=== PATIENT | male | born 1975 | race African-American/Black ===

== ENCOUNTER 2020-08-19 00:21 | Inpatient (IN) | payer OTHER ==
[~2020-08-19] VITALS: Ht 175.3 cm; Wt 85.6 kg
[2020-08-19 00:35] LABS: BASO # 0.1 x10^3/uL (0.0-0.2); BASO % 1 % (0-3); EOS # 0.1 x10^3/uL (0.0-0.7); EOS % 1 % (0-3); HEMATOCRIT 44.4 % (39.0-53.0); HEMOGLOBIN 15.3 g/dL (13.0-17.5); LYMPH # 4.1 x10^3/uL (1.0-4.8); LYMPH % 39 % (24-48); MEAN CORPUSCULAR HEMOGLOBIN 34 pg (25-35); MEAN CORPUSCULAR HGB CONC 35 g/dL (31-37); MEAN CORPUSCULAR VOLUME 97 fL (79-100); MONO # 0.8 x10^3/uL (0.0-1.1); MONO % 8 % (0-9); NEUT # 5.2 x10^3/uL (1.8-7.7); NEUT % 51 % (31-73); PLATELET COUNT 355 x10^3/uL (140-400); RED BLOOD COUNT 4.58 x10^6/uL (4.30-5.70); RED CELL DISTRIBUTION WIDTH 14.7 % (11.5-14.5); WHITE BLOOD COUNT 10.3 x10^3/uL (4.0-11.0)
[2020-08-19 00:45] LABS: CALCIUM 8.5 mg/dL (8.5-10.1); CREATININE 1.3 mg/dL (0.7-1.3); GFR 60.2; POTASSIUM 3.6 mmol/L (3.5-5.1)
[2020-08-19] MEDS ORDERED: HYDROmorphone 2 MG/ML VIAL IVP ONE ×2 (00:45→02:00)
[2020-08-19 00:47] LABS: PROTHROMBIN TIME PATIENT 12.5 SEC (11.7-14.0)
[2020-08-19 00:50] LABS: TOTAL BILIRUBIN 0.2 mg/dL (0.2-1.0); TOTAL PROTEIN 8.1 g/dL (6.4-8.2)
--- NOTE | 2020-08-19 00:55 | RAD ---
XR RT TIBIA+FIBULA , XR EXAM OF ANKLE_RIGHT 2 VIEWS, XR KNEE_RT 1-2 VIEWS, XR FOOT_RIGHT 2 VIEWS History: Reason: right medial ankle pain / Spl. Instructions: / History: Technique: 2 views right knee, 2 views right tib-fib, 2 views right ankle and 2 views right foot Comparison: None. Findings: Right knee: Normal alignment. No fracture. No significant knee joint effusion. Right tibia-fibula and ankle acute comminuted displaced distal fibular fracture. Acute comminuted dis placed medial malleolus fracture. Acute posterior malleolus fracture. Dislocation of the ankle with d isruption of the ankle mortise with rotation. Ankle soft tissue swelling. Right foot: Normal alignment of the foot. No fracture. Impression: 1. Acute right trimalleolar ankle fracture with dislocation. Electronically signed by: James Lyons DO (08/19/2020 12:52 AM) [facility]
[2020-08-19] MEDS ORDERED: IV NORMAL SALINE 1000ML BAG 1,000 ML IV ONE ×2 (01:00→03:00)
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
[2020-08-19] MEDS: HYDROmorphone 2 MG/ML VIAL IVP ONE ×2 (01:18→01:30)
--- NOTE | 2020-08-19 01:35 | EKG ---
[facility] [address] [place] [address] Test Date: 2020-08-19 Test Time: 01:03:30 Pat Name: ELIZABETH OLIVERA Department: Room: Gender: M [employer]: : 1975 Requested By: LOLITA HOGAN Order Number: [id number] Reading MD: Measurements Intervals [place] Rate: 73 P: 0 [place]: 144 QRS: 38 QRSD: 94 T: 3 QT: 378 QTc: 420 Interpretive Statements SINUS RHYTHM LOW LIMB LEAD VOLTAGE NO SPECIFIC ECG ABNORMALITIES RI6.02 No previous ECG available for comparison
[2020-08-19] MEDS ORDERED: ONDANSETRON PF 4 MG/2 ML VIAL. IV PRN (01:45)
--- NOTE | 2020-08-19 01:58 | RAD ---
XR CHEST 1V History: Reason: fall / Spl. Instructions: / History: . Pain Comparison: None. Findings: No consolidation or pleural effusion. Normal heart size. No pneumothorax. Impression: 1. No acute cardiopulmonary process. Electronically signed by: James Lyons DO (08/19/2020 1:56 AM) [facility]
--- NOTE | 2020-08-19 01:59 | RAD ---
XR PELVIS 1-2V History: Reason: fall / Spl. Instructions: / History:. Pain Technique: AP view the pelvis. Comparison: None. Findings: Normal alignment. No fracture. Impression: 1. No acute osseous abnormality. Electronically signed by: James Lyons DO (08/19/2020 1:57 AM) [facility]
[2020-08-19] MEDS ORDERED: IV NORMAL SALINE 1000ML BAG 1,000 ML IV SCH (02:00)
--- NOTE | 2020-08-19 02:00 | RAD ---
XR EXAM OF ANKLE_RIGHT 3VIEWS History: Reason: s/p reduction / Spl. Instructions: / History: Technique: 3 views right ankle Comparison: None. Findings: Interval reduction right ankle fracture dislocation. Persistent widening of ankle mortise. Improved a lignment of the comminuted distal fibular, medial malleolus and posterior malleolus fractures. Impression: 1. Interval reduction right ankle fracture dislocation, improved alignment. Electronically signed by: James Lyons DO (08/19/2020 1:58 AM) [facility]
[2020-08-19] MEDS ORDERED: IV RINGERS,LACTATED 1000ML 1,000 ML IV ONE (03:30)
--- NOTE | 2020-08-19 03:33 | RAD ---
CT HEAD AND C-SPINE WO History: Reason: intox fall, right ankle pain / Spl. Instructions: / History: Comparison: None. Technique: Noncontrast CT imaging was performed of the head and cervical spine. Coronal and sagittal reconstructions were performed. Exposure: One or more of the following individualized dose reduction techniques were utilized for thi s examination: 1. Automated exposure control 2. Adjustment of the mA and/or kV according to patient size 3. Use of iterative reconstruction technique. Findings: Head CT: No intracranial hemorrhage. No mass effect. No hydrocephalus. Chronic left frontal infarct. Mild additional foci of decreased attenuation within the hemispheric white matter, most often due to chronic microvascular ischemia. Imaged orbits are unremarkable. Left inferior maxillary sinus mucous retention cyst or polyp. No acut e calvarial fracture. Cervical spine CT: Normal vertebral body height and alignment. No fracture. Mild degenerative disc changes most prominent C5-C6. No high-grade canal or neuroforaminal narrowing. Right apical bleb measures 2.1 x 2.0 cm. Impression: Head CT: 1. No acute intracranial abnormality. 2. Chronic left frontal infarct. Cervical spine CT: 1. No acute fracture or subluxation of the cervical spine. Electronically signed by: James Lyons DO (08/19/2020 3:30 AM) [facility]
[2020-08-19] MEDS: MORPHINE SULFATE 4 MG/ML VIAL. IV PRN ×3 (04:01→10:55)
[2020-08-19 07:00] VITALS: BP 108/62
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
[2020-08-19] MEDS ORDERED: SENNOSIDES 8.6 MG TABLET PO PRN (07:45)
[2020-08-19] MEDS: IV NORMAL SALINE 1000ML BAG 1,000 ML IV SCH ×2 (07:45→17:40)
[2020-08-19] MEDS ORDERED: ACETAMINOPHEN 325 MG TABLET. PO PRN (07:45)
[2020-08-19] MEDS ORDERED: DOCUSATE SODIUM 100 MG CAPSULE. PO PRN (07:45)
[2020-08-19] MEDS ORDERED: DEXTROSE 50% 25 GM / 50ML DISP.SYRIN. IV PRN ×2 (07:45→13:45)
[2020-08-19] MEDS ORDERED: ONDANSETRON PF 4 MG/2 ML VIAL. IVP PRN ×2 (07:45→13:45)
--- NOTE | 2020-08-19 09:33 | NUR ---
Discussed CIWA protocol with Dr Cruz. Dr Cruz says not needed at this time. Continue to medicate for right ankle pain. Ice chips given. No signs of alcohol withdrawal noted at this time.
[2020-08-19 11:00] VITALS: BP 114/67
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
[2020-08-19] MEDS ORDERED: PROCHLORPERAZINE 10 MG/2 ML VIAL. IVP PRN (11:30)
[2020-08-19] MEDS ORDERED: IV RINGERS,LACTATED 1000ML 1,000 ML IV SCH (11:30)
[2020-08-19] MEDS ORDERED: MORPHINE SULFATE 2 MG/ML VIAL. IVP PRN ×2 (11:30→13:45)
[2020-08-19] MEDS ORDERED: fentaNYL PF VIAL 100 MCG/2 ML VIAL IVP PRN ×2 (11:30→13:45)
[2020-08-19] MEDS ORDERED: HYDROmorphone 2 MG/ML VIAL IVP PRN (11:30)
--- NOTE | 2020-08-19 12:15 | NUR ---
Pt taken to OR per bed for ORIF of right ankle.
[2020-08-19] MEDS ORDERED: ONDANSETRON PF 4 MG/2 ML VIAL. ONE (12:19)
[2020-08-19] MEDS ORDERED: DEXAMETHASONE SOD PHOS 4 MG/ML VIAL ONE (12:19)
[2020-08-19] MEDS ORDERED: LIDOCAINE 2% PF 5 ML VIAL. ONE (12:19)
[2020-08-19] MEDS ORDERED: PROPOFOL 10 MG/ML (20ML) VIAL. IV ONE (12:19)
[2020-08-19] MEDS ORDERED: fentaNYL PF VIAL 100 MCG/2 ML VIAL ONE ×2 (12:20→12:28)
[2020-08-19] MEDS: fentaNYL PF VIAL 100 MCG/2 ML VIAL IVP PRN ×2 (12:33→15:04)
[2020-08-19] MEDS ORDERED: BUPIVACAINE-EPI 0.5%-1:200000 MPF 30 ML VIAL. ONE (13:00)
[2020-08-19] MEDS ORDERED: MIDAZOLAM HCL/PF 2 MG/2 ML VIAL. ONE (13:12)
[2020-08-19] MEDS ORDERED: KETOROLAC 30 MG/ML VIAL. ONE (13:12)
[2020-08-19] MEDS ORDERED: MORPHINE SULFATE 4 MG/ML VIAL. IVP PRN (13:45)
[2020-08-19] MEDS ORDERED: oxyCODONE IR 5 MG TABLET PO PRN (13:45)
[2020-08-19] MEDS ORDERED: HYDROcodone/APAP 7.5/325MG 1 TAB TABLET PO PRN ×2 (13:45)
[2020-08-19] MEDS ORDERED: POLYETHYLENE GLYCOL 3350 17 GM PACKET. PO PRN (13:45)
--- NOTE | 2020-08-19 14:03 | PDOC4 ---
OPERATIVE NOTE: Surgery Date: 08/19/20 Preoperative diagnosis: Right ankle bimalleolar ankle fracture dislocation. Postoperative diagnosis: Same. Operative procedure: Right ankle bimalleolar fracture closed reduction and splint application. Surgeon: Kimberly Gillespie DO/EVELIA Assistants: None Anesthesia: General Antibiotics: Ancef Orthopedic implants: None Operative indications: Patient is a 45 year-old male admitted through the ED this morning with a right ankle fracture dislocation. His radiographs revealed a subluxed bimalleolar fracture with unacceptable alignment. We discussed the risks, benefits, and alternatives to surgery for closed and possible open reduction with possible internal fixation. He demonstrated understanding and wished to proceed with surgery. Operative technique: The patient was met in the preoperative holding area and again the risk, benefits, and alternatives to surgery were reviewed with the patient. He again demonstrated understanding and wished to proceed with surgery. The operative extremity was then initialed after verifying correct surgical site with patient. Patient was then taken back to the operative suite. He was placed on the operative table in supine position. He was administered a general anesthetic by the department of anesthesiology and given 2 g of Ancef preoperatively. A timeout protocol was performed to verify correct surgical site and procedure. All teams were in agreement. Due to the significant amount of soft-tissue swelling, and open surgery was not attempted as there would be concern for inability to close surgical incisions at the end of the case. Therefore, a closed reduction was performed to achieve more stable alignment. The patient was then placed into a plaster 3 sided short leg splint. Fluoroscopic images were taken to verify adequate reduction. We will plan to follow the patient via the out-patient orthopedic clinic and schedule surgery for definitive fixation once his soft tissue swelling improves. I will also order a post-op CT and post-reduction radiographs for pre-surgery planning purposes. The patient was then awakened from general anesthesia. He was then transferred to the postoperative gurcherry fork in stable condition. Estimated blood loss: 0 mL. Complications: None. Specimens sent to pathology: None. Disposition: PACU and post surgical floor. Condition: Stable. KIMBERLY GILLESPIE DO Aug 19, 2020 14:03
--- NOTE | 2020-08-19 14:34 | RAD ---
Three-view right ankle 2:04 PM HISTORY: Pain status post reduction AP lateral oblique views COMPARISON: 1:44 AM AP lateral oblique views There is obscuration of bony detail due to overlying cast. The tibiotalar relationship is normal. The re is an oblique fracture of the lateral malleolus above the level plafond and with mild lateral disp lacement. There is a fracture through the medial malleolus which is not well seen and is likely reduc ed. There is mild widening of the medial mortise. IMPRESSION: 1. Bimalleolar fracture. There is mild displacement of the lateral malleolus which is significantly i mproved. 2. Mild widening of the medial mortise is significantly improved. Electronically signed by: Kieran Wahl III, MD (08/19/2020 2:32 PM) [facility]
[2020-08-19 15:19] VITALS: BP 119/76
--- NOTE | 2020-08-19 15:20 | NUR ---
Pt returned from OR . Closed reduction performed and pt will have to go back to ER in about a week when swelling goes down.
[2020-08-19 15:49] VITALS: BP 129/84
--- NOTE | 2020-08-19 17:10 | RAD ---
EXAMINATION: CT LOWER RIGHT EXTREMITY WITHOUT CONTRAST, 08/19/2020 3:05 PM CLINICAL INDICATION: Right ankle fracture COMPARISON: Right ankle radiograph 08/19/2020 TECHNIQUE: Helical CT imaging performed of the right ankle without the use of intravenous contrast. S agittal and coronal reformats were obtained. One or more of the following individualized dose reduction techniques were utilized for this examinat ion: 1. Automated exposure control 2. Adjustment of the mA and/or kV according to patient size 3. Use of iterative reconstruction technique. FINDINGS: There is a comminuted oblique fracture of the distal fibula extending proximally from the level of th e distal tibiofibular syndesmosis. This results in approximately one cortex width posterior and later al displacement of the distal fragment. A small fracture fragment also extends into the distal tibiof ibular syndesmosis. There is a mildly displaced medial malleolar fracture. 5 mm medial clear space widening. A tiny posterior malleolus fracture results in a 1.6 x 0.3 x 0.7 cm fracture fragment, mildly displac ed posteriorly by 3 mm. The talar dome is intact. No other fracture or dislocation. No degenerative joint disease. The peroneal tendons are slightly medialized at the lateral malleolus but there is no definite tendon entrapment. Medial flexor, anterior extensor, and Achilles tendons are grossly intact and normal in position. There is subcutaneous edema about the ankle. IMPRESSION: Mildly displaced trimalleolar fractures, as described. Electronically signed by: Feli Ibarra MD (08/19/2020 5:08 PM) [id number]
[2020-08-19 19:00] VITALS: BP 133/74
[2020-08-19 23:00] VITALS: BP 150/83
[2020-08-20 03:00] VITALS: BP 165/98
[2020-08-20] MEDS: IV NORMAL SALINE 1000ML BAG 1,000 ML IV SCH (03:56)
[2020-08-20 04:38] LABS: BASO % 0 % (0-3); EOS % 0 % (0-3); HEMATOCRIT 40.6 % (39.0-53.0); HEMOGLOBIN 13.6 g/dL (13.0-17.5); LYMPH # 0.9 x10^3/uL (1.0-4.8); LYMPH % 6 % (24-48); MEAN CORPUSCULAR HEMOGLOBIN 33 pg (25-35); MEAN CORPUSCULAR HGB CONC 34 g/dL (31-37); MEAN CORPUSCULAR VOLUME 97 fL (79-100); MONO # 1.1 x10^3/uL (0.0-1.1); MONO % 7 % (0-9); NEUT # 13.2 x10^3/uL (1.8-7.7); NEUT % 87 % (31-73); PLATELET COUNT 299 x10^3/uL (140-400); RED BLOOD COUNT 4.19 x10^6/uL (4.30-5.70); WHITE BLOOD COUNT 15.2 x10^3/uL (4.0-11.0)
[2020-08-20 05:01] LABS: CALCIUM 8.2 mg/dL (8.5-10.1); GFR 98.7; MAGNESIUM 1.8 mg/dL (1.8-2.4); PHOSPHORUS 2.3 mg/dL (2.6-4.7); POTASSIUM 4.1 mmol/L (3.5-5.1)
[2020-08-20 06:00] LABS: % BANDS 4 % (0-9); % LYMPHS 6 % (24-48); % MONOS 2 % (0-10); % SEGS 88 % (35-66); PLT ESTIMATE ADEQUATE (ADEQUATE)
[2020-08-20] MEDS ORDERED: MAGNESIUM HYDROXIDE 2,400 MG/30 ML ORAL.SUSP. PO PRN (06:00)
[2020-08-20 07:00] VITALS: BP 144/87
[2020-08-20] MEDS ORDERED: SENNOSIDES/DOCUSATE 8.6/50MG TABLET. PO SCH (09:00)
--- NOTE | 2020-08-20 09:14 | PDOC ---
GENERAL General: Postop day #1 status post right ankle fracture/dislocation closed reduction and splint application. Patient's pain is well controlled. Currently up with physical therapy using axillary crutches and nonweightbearing on right lower extremity. Problems: (1) Dislocation of right ankle joint VITAL SIGNS Vital Signs/I&O: Vital Signs Date Time Temp Pulse Resp B/P (MAP) Pulse Ox O2 Delivery O2 Flow Rate FiO2 08/20/20 07:00 98.4 82 17 144/87 (106) 98 Nasal Cannula 2.0 98.4 I & O 08/19/20 08/19/20 08/20/20 15:00 23:00 07:00 Intake Total 1450 ml 700 ml 200 ml Output Total 500 ml 850 ml 600 ml Balance 950 ml -150 ml -400 ml ALLERGIES Allergies: Allergies Coded Allergies Type Severity Reaction Last Updated Verified No Known Drug Allergies 08/19/20 No MEDS Medications: Current Medications Medications (Trade) Dose Ordered Sig/Ganesh Route PRN Reason Start Time Stop Time Status Last Admin Dose Admin Fentanyl Citrate (Fentanyl 2ml Vial) 50 mcg PRN Q5MIN PRN IVP MODERATE PAIN 4-6 08/19/20 11:30 08/20/20 11:29 08/19/20 15:04 Ringer's Solution 1,000 ml @ 30 mls/hr Q24H IV 08/19/20 11:30 08/19/20 23:29 DC 08/19/20 11:30 Cefazolin Sodium/ Dextrose 50 ml @ 100 mls/hr 1X ONCE IV 08/19/20 12:45 08/19/20 13:14 DC 08/19/20 13:05 LAB Lab: Laboratory Tests Test 08/20/20 04:15 White Blood Count 15.2 x10^3/uL (4.0-11.0) H Red Blood Count 4.19 x10^6/uL (4.30-5.70) L Hemoglobin 13.6 g/dL (13.0-17.5) Hematocrit 40.6 % (39.0-53.0) Mean Corpuscular Volume 97 fL (79-100) Mean Corpuscular Hemoglobin 33 pg (25-35) Mean Corpuscular Hemoglobin Concent 34 g/dL (31-37) Red Cell Distribution Width 14.0 % (11.5-14.5) Platelet Count 299 x10^3/uL (140-400) Neutrophils (%) (Auto) 87 % (31-73) H Lymphocytes (%) (Auto) 6 % (24-48) L Monocytes (%) (Auto) 7 % (0-9) Eosinophils (%) (Auto) 0 % (0-3) Basophils (%) (Auto) 0 % (0-3) Neutrophils # (Auto) 13.2 x10^3/uL (1.8-7.7) H Lymphocytes # (Auto) 0.9 x10^3/uL (1.0-4.8) L Monocytes # (Auto) 1.1 x10^3/uL (0.0-1.1) Eosinophils # (Auto) 0.0 x10^3/uL (0.0-0.7) Basophils # (Auto) 0.0 x10^3/uL (0.0-0.2) Segmented Neutrophils % 88 % (35-66) H Band Neutrophils % 4 % (0-9) Lymphocytes % 6 % (24-48) L Monocytes % 2 % (0-10) Platelet Estimate Adequate (ADEQUATE) Large Platelets Occ Sodium Level 138 mmol/L (136-145) Potassium Level 4.1 mmol/L (3.5-5.1) Chloride Level 102 mmol/L (98-107) Carbon Dioxide Level 29 mmol/L (21-32) Anion Gap 7 (6-14) Blood Urea Nitrogen 13 mg/dL (8-26) Creatinine 1.0 mg/dL (0.7-1.3) Estimated GFR (Cockcroft-Gault) 98.7 Glucose Level 127 mg/dL (70-99) H Calcium Level 8.2 mg/dL (8.5-10.1) L Phosphorus Level 2.3 mg/dL (2.6-4.7) L Magnesium Level 1.8 mg/dL (1.8-2.4) Laboratory Tests 08/20/20 04:15 Laboratory Tests 08/20/20 04:15 IMAGING Imaging: Postoperative radiographs reveal comminuted distal fibula fracture as well as large medial malleolar fragment. Anterior lateral fracture of the tibial plafond. Improved alignment. Plaster splint in place. CT scan done for preoperative planning purposes reveals a comminuted distal fibular fracture as well as large medial malleolar fracture. Small loose bony fragment in the anterior lateral joint space. ASSESSMENT & PLAN A&P 45-year-old male postop day #1 status post right ankle fracture/dislocation closed reduction and splint application. -Patient will use crutches and be nonweightbearing on right lower extremity. -Continue with right lower extremity elevation to allow for decreased swelling. -Patient is orthopedically stable for discharge with follow-up in the outpatient clinic next week. -We discussed definitive treatment for ankle fracture open reduction internal fixation to be planned on an outpatient basis once swelling improves. -Patient provided with office contact information which will also be in his [facility] paperwork to schedule outpatient follow-up for surgical planning purposes. -Continue with nonweightbearing right lower extremity, splint to be in place at all times. Justifications for Admission Other Justification Ankle fx KIMBERLY GILLESPIE DO Aug 20, 2020 09:14
[2020-08-20 11:00] VITALS: BP 129/73
--- NOTE | 2020-08-20 11:17 | DISCH ---
DISCHARGE INSTRUCTIONS Condition on Discharge Condition on Discharge: Stable Activity After Discharge Activity Instructions for Disc: Activity as tolerated Lifting Instructions after Dis: Do not lift >10 pounds Weight Bearing Status after Di: Other, see below (Follow orthopedic mobility instructions) Diet after Discharge Diet after Discharge: Cardiac Follow-Up Follow up with: PCP within 2 weeks of discharge Follow Up With: Orthopedic clinic within 2 weeks of discharge PRICILLA HERNANDEZ MD Aug 20, 2020 11:17
--- NOTE | 2020-08-20 12:18 | NUR ---
SW following for discharge planning. Spoke with RN and reviewed chart. SW consulted as pt post op day 1. SW met with patient today. Pt stated no needs from SW on discharge. Pt had surgery yesterday per a fractured ankle. Pt's BAL was 393 on admission. PAT referral made yesterday. SW spoke with Aung from PAT who came to see pt today, 08/20 to provide resources for ETOH. Pt to follow up with ortho in 1 week. Discharge plan is home self-care today, 08/20. Pt provided with crutches from PT. Pt on room air and medications. No further SW needs at this time.
--- NOTE | 2020-08-20 12:45 | NUR ---
Pt was read discharge packet, and had no questions or concerns. Pt's IV was taken out, and heart monitor taken off. Pt was stable when leaving the unit.
[2020-08-20] MEDS ORDERED: BISACODYL 10 MG SUPP.RECT. PR PRN (16:00)
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
== END 2020-08-20 12:45 | disposition home or self-care (01) | DRG 563 ==
LOC: ER 00:21 → 6 SOUTH 01:42
PROVIDERS: ADMIT Internal Medicine; ATTEND Internal Medicine
PROC: 0QSGXZZ Reposition Right Tibia, External Approach (ICD-10-PCS; principal; 2020-08-19 13:30)
DX: S82.851A Displaced trimalleolar fracture of right lower leg, initial encounter for closed fracture (principal); E87.0 Hyperosmolality and hypernatremia; F10.129 Alcohol abuse with intoxication, unspecified; F17.200 Nicotine dependence, unspecified, uncomplicated; Z20.822 Contact with and (suspected) exposure to COVID-19; V29.69XA Unspecified motorcycle rider injured in collision with other motor vehicles in traffic accident, initial encounter; Y93.89 Activity, other specified; Y92.89 Other specified places as the place of occurrence of the external cause; Y99.8 Other external cause status
CPT/HCPCS: 29515; 36415; 70450; 71045; 72125; 72170; 73560; 73590; 73600; 73610; 73620; 73700; 76000; 80048; 80053; 83735; 84100; 84484; 85007; 85025; 85610; 85730; 86850; 86900; 86901; 87426; 93005; 96361; 96374; 96376; A6457; G0480; J0690; J1100; J1170; J1885; J2250; J2270; J2405; J2704; J3010; J7030; J7120; U0003; 97116-GP; 97535-GO; 99285-25; G0378